=== PATIENT | female | born 1995 | race Caucasian/White ===

== ENCOUNTER 2018-12-05 14:33 | Emergency (ER) | payer OTHER | END 2018-12-05 15:45 | disposition home or self-care (01) | LOC: FTE 14:33 → E/R 15:45 | DX: S92.504A Nondisplaced unspecified fracture of right lesser toe(s), initial encounter for closed fracture (principal); W22.09XA Striking against other stationary object, initial encounter; Y92.89 Other specified places as the place of occurrence of the external cause | CPT/HCPCS: 73660; 99283-25 ==